=== PATIENT | female | born 1955 | race Caucasian/White ===

== ENCOUNTER 2016-12-04 09:15 | Outpatient (CLI) | payer MEDICAID ==
[~2016-12-04] VITALS: Ht 157.5 cm; Wt 77.3 kg
--- NOTE | ~2016-12-04 | HEMODYNAMI ---
PATIENT:TANNER DIETRICH MEDICAL RECORD: [id number] : 55 LOCATION:D.CAT ADMISSION DATE: 12/04/16 Generatedon:12/04/201612:12 Patient name: TANNER DIETRICH Patient #: [id number] : 1955 Date of study: 12/04/2016 Page: Of Hemodynamic Procedure Report Patient Data Patient Demographics Procedure consent was obtained First Name: TANNER Gender: Female Last Name: KARLO : 1955 Patient #: [id number] Age: 61 year(s) Race: Unknown SSN: [id number] Additional ID: [id number] Contact details [address]: [address] [place] [address] State: [place] City: [place] Zip code: [address] Past Medical History Allergies Allergen Reaction Date Comments Reported Other allergy 12/04/2016 Sulfate, codeine Admission Admission Data Admission Date: 12/04/2016 Admission Time: 9:15 Arrival Date: 12/04/2016 Arrival Time: 0:00 Admit Source: Other Insurance Payor: Private health insurance Height (in.): 64 BSA: 1.85 (m2) Height (cm.): 162.56 BMI: 30.21 (kg/m2) Weight (lbs.): 176 Weight (kg.): 79.83 Lab Results Lab Result Date: 12/04/2016 Lab Result Time: 0:00 Biochemistry Name Units Result Min Max BUN mg/dl 9 --(*---)-- 7 18 Creatinine mg/dl 0.8 --(-*--)-- 0.6 1.3 CBC Name Units Result Min Max Hemoglobin g/dl 11.9 *-(----)-- 13.5 17.5 Procedure Procedure Types Cath Procedure Diagnostic Procedure LHC LHC w/Coronaries Miscellaneous Procedures Moderate Sedation up to 15 minutes Procedure Description Procedure Date Procedure Date: 12/04/2016 Procedure Start Time: 12:00 Procedure End Time: 12:07 Procedure Staff Name Function Yousif Horner MD Performing Physician Lisette Lynn RT Scrub Jaden Ramey RN Nurse Jodi Cunha RT Monitor Procedure Data Cath Procedure Fluoroscopy Diagnostic fluoroscopy Total fluoroscopy Time: 1 time: 1 min min Diagnostic fluoroscopy Total fluoroscopy dose: 216 dose: 216 mGy mGy Contrast Material Contrast Material Type Amount (ml) Isovue 300 50 Entry Location Entry Primary Successful Side Size Upsize Upsize Entry Closure Succes sful Closure Location (Fr) 1 (Fr) 2 (Fr) Remarks Device Remarks Femoral Right 5 Fr Exoseal artery Estimated blood loss: 10 ml Diagnostic catheters Device Type Used For End Catheter Placement Cordis 5Fr Pigtail LV Angiography Catheter (MP) Cordis 5Fr JL 4.0 Procedure Catheter (MP) Cordis 5Fr 3DRC Catheter Procedure (MP) Procedure Complications No complications Procedure Medications Medication Administration Route Dosage Oxygen NC 2 l/min Lidocaine 2% added to field 20 Heparin Flush Bag added to field 2 bags (1000units/500ml NS) 0.9% NaCl I.V. 100 ml/hr Versed I.V. 1 mg Fentanyl I.V. 50 mcg Versed I.V. 1 mg Fentanyl I.V. 50 mcg Versed I.V. 1 mg Fentanyl I.V. 50 mcg Radial Cocktail added to field 1 syringe (Verapomil 2mg/Nitro 400mcg/Heparin 1500units) Mechanical Ventricular Support IABP: Other mechanical ventricular support: Hemodynamics Rest BSA: 1.85 (m2) HGB: 11.9 (g/dl) O2 Consumption: Estimated: 169.16 (ml/min) O2 Co nsumption indexed: Estimated:91.44 (ml/min/m) Heart Rate: 62 (bpm) Snapshots Pre Cath Intra NCS Post Cath Vital Signs Time Heart Resp SPO2 NIBP (mmHg) Rhythm Pain Sedation Rate (ipm) (%) Status Level (bpm) 11:26:41 60 21 100 159/68(123) NSR 0 (11) 10(A) , No pain 11:31:57 57 23 98 132/65(105) NSR 0 (11) 10(A) , No pain 11:36:17 59 19 97 138/63(101) NSR 0 (11) 10(A) , No pain 11:41:45 53 16 98 117/49(82) NSR 0 (11) 10(A) , No pain 11:46:03 51 17 97 111/49(82) NSR 0 (11) 10(A) , No pain 11:50:23 48 16 97 114/45(80) NSR 0 (11) 10(A) , No pain 11:54:35 57 17 97 114/66(78) NSR 0 (11) 10(A) , No pain 11:58:53 48 21 97 105/54(82) NSR 0 (11) 9(A) , No pain 12:03:52 56 18 96 111/52(85) NSR 0 (11) 9(A) , No pain 12:08:08 54 17 94 106/52(89) NSR 0 (11) 9(A) , No pain 12:10:08 53 18 95 100/47(81) NSR 0 (11) 10(A) , No pain Medications Time Medication Route Dose Verified Delivered Reason Notes Effectiveness by by 11:25:42 Oxygen NC 2 l/min Yousif Buffie used for Siri Ramey RN procedure 11:25:50 Lidocaine 2% added 20ml Yousif Yousif for local to vial Siri Horner MD anesthetic field 11:25:57 Heparin Flush added 2 bags Yousif Dodd used for Bag to Siri Horner MD procedure (1000units/500ml field NS) 11:26:05 0.9% NaCl I.V. 100 Yousif Buffie Per ml/hr Siri Ramey RN physician 11:26:12 Radial Cocktail added 1 Yousif Buffie NOT USED (Verapomil to syringe Siri Ramey RN FEMORAL 2mg/Nitro field ACCESS 400mcg/Heparin OBTAINED 1500units) 11:54:22 Versed I.V. 1 mg Yousif Buffie for Siri Ramey RN sedation 11:54:28 Fentanyl I.V. 50 mcg Yousif Tilleyie for Siri Ramey RN sedation 11:57:12 Versed I.V. 1 mg Yousif Buffie for Siri Ramey RN sedation 11:57:16 Fentanyl I.V. 50 mcg Yousif Buffie for Siri Ramey RN sedation 12:02:06 Versed I.V. 1 mg Yousif Buffie for Siri Ramey RN sedation 12:02:11 Fentanyl I.V. 50 mcg Yousif Buffie for Tauth MD Ramey RN sedation Procedure Log Time Note 11:: Admit Source: Other 11:: Arrival Date: 12/04/2016 12:00:00 AM 11:07:32 Patient Height : 162.56 cm 11:07:39 Patient Weight : 79.83 kg 11:10:24 Lab Result : Hemoglobin 11.9 g/dl 11::24 Lab Result : Creatinine 0.8 mg/dl 11::24 Lab Result : BUN 9 mg/dl 11::31 Diagnostic Cath Status : Elective 11::49 IABP : 11::50 Other mechanical ventricular support: 11:: aJden Ramey RN sent for patient. Start room use. 11:: Time tracking: Regular hours 11:: Plan of Care:Hemodynamics will remain stable., Cardiac rhythm will remain stable., Comfort level will be maintained., Respiratory function will remain adequate., Patient/ family verbilizes understanding of procedure., Procedure tolerated without complication., Recovers from procedure without complications.. 11:13:25 Insurance Payor : Private health insurance 11:25:14 Patient received from Med II to [facility] 2 Alert and oriented. Tansferred to table in Supine position. 11:25:15 Warm blankets applied, and ladi hugger turned on for patient comfort. 11:25:16 Correct patient and procedure confirmed by team. 11:25:22 Signed procedure consent form obtained from patient. 11:25:23 ECG and BP/O2 sat monitors applied to patient. 11:25:23 Vital chart was started 11:25:24 Baseline sample Acquired. 11::27 Rhythm: sinus rhythm 11:25:29 Full Disclosure recording started 11:25:42 Oxygen 2 l/min NC was administered by Jaden Ramey RN; used for procedure; 11:25:50 Lidocaine 2% 20ml vial added to field was administered by Yousif Horner MD; for local anesthetic; 11:25:57 Heparin Flush Bag (1000units/500ml NS) 2 bags added to field was administered by Yousif Horner MD; used for procedure; 11:26:03 H&P Date Dictated: 11/28/2016 Within 30 days and on chart., H&P Addendum completed by physician on day of procedure. (MUST COMPLETE FOR ALL OUTPATIENTS). 11:26:05 0.9% NaCl 100 ml/hr I.V. was administered by Jaden Ramey RN; Per physician; 11:26:05 Pre-procedure instructions explained to patient. 11:26:07 Family in waiting room. 11:26:09 Patient NPO since Midnight. 11:26:12 Radial Cocktail (Verapomil 2mg/Nitro 400mcg/Heparin 1500units) 1 syringe added to field was administered by Jaden Ramey RN; ; NOT USED FEMORAL ACCESS OBTAINED 11::38 Patient allergic to Other allergySulfate, codeine 11::41 Is the patient allergic to Iodine/contrast media? No. 11::44 Was the patient premedicated? No 11::45 Is patient on blood thinner?Yes 11::50 ACC The patient was administered the following blood thiners within the last 24 hours: ACCPlavix 11:26:52 Patient diabetic? No. 11:26:56 Snore? Yes 11::59 Sleep apnea? No 11:27:04 Dentures? Yes tight 11:27:11 Patient pain scale 0/10 ?. 11:27:18 IV patent on arrival in left forearm with 0.9% NaCl at [facility]. 11:27:23 Lab results completed and on chart. 11:27:26 Right Radial & Right Groin area was prepped with chlora-prep and draped in sterile fashion 11:27:31 Alarms reviewed by R. N. 11:27:35 Sharps counted by scrub and verified by R.N. 11:27:36 Physician paged 11:27:43 Use device set Radial Dx 11:27:45 Acist Syringe opened to sterile field. 11:27:45 Medline Cath Pack opened to sterile field. 11:27:45 Bag Decanter opened to sterile field. 11:27:46 Terumo 6Fr Slender Glidesheath opened to sterile field. 11:27:46 St Claudio 260cm J .035 wire opened to sterile field. 11:27:47 Acist Hand Control opened to sterile field. 11:27:47 Acist Manifold opened to sterile field. 11:27:48 Tegaderm 4 x 4 opened to sterile field. 11:27:48 MBrace Wrist Support opened to sterile field. 11:37:34 Zero performed for pressure channel P1 11:48:33 Physician arrived 11:53:48 --------ALL STOP TIME OUT------ 11:53:49 Final Timeout: patient, procedure, and site verified with staff and physician. All members of the team are in agreement. 11:53:52 Right Radial & Right Groin site verified by team. 11:53:56 Physical assessment completed. ASA score P 2 - A patient with mild systemic disease as per Yousif Horner MD. 11:53:59 Sedation plan: IV Moderate Sedation Versed, Fentanyl 11:54:22 Versed 1 mg I.V. was administered by Jdaen Ramey RN; for sedation; 11:54:28 Fentanyl 50 mcg I.V. was administered by Jaden Ramey RN; for sedation; 11:54:38 Procedure started. 11:55:53 Local anesthetic to right radial artery with Lidocaine 2% by Yousif Horner MD.ADDITIONAL ACCESS 11:57:12 Versed 1 mg I.V. was administered by Jaden Ramey RN; for sedation; 11:57:16 Fentanyl 50 mcg I.V. was administered by Jaden Ramey RN; for sedation; 12:00:11 Local anesthetic to right femoral artery with Lidocaine 2% by Yousif Horner MD.INITIAL ACCESS ONLY 12:00:20 Use device set Multipack Set 12:00:28 Diagnostic Infinity 5Fr Multipack catheter opened to sterile field. 12:00:34 Terumo 5Fr Galata Sheath opened to sterile field. 12:01:17 A 5 Fr sheath was inserted into the Right Femoral artery 12:02:05 A Cordis 5Fr Pigtail Catheter (MP) was advanced over the wire and used for LV Angiography. 12:02:06 Versed 1 mg I.V. was administered by Jaden Ramey RN; for sedation; 12:02:11 Fentanyl 50 mcg I.V. was administered by Jaden Ramey RN; for sedation; 12:02:11 EF : 50 % 12:02:13 Catheter removed. 12:02:20 A Cordis 5Fr JL 4.0 Catheter (MP) was advanced over the wire and used for Procedure. 12:03:08 LCA angiography performed. 12:03:48 Catheter removed. 12:03:55 A Cordis 5Fr 3DRC Catheter (MP) was advanced over the wire and used for Procedure. 12:04:31 Catheter removed. 12:04:43 Cordis 5Fr Exoseal opened to sterile field. 12:05:08 Sheath removed intact; hemostasis achieved with Exoseal to the Right Femoral artery. 12:05:11 Procedure ended.(Physican Out) 12:05:40 Fluoroscopy time 01.00 minutes. 12:06:12 Fluoroscopy dose: 216 mGy 12:06:12 Flurop Dose total: 216 12:06:24 Contrast amount:Isovue 300 50ml. 12:06:25 Sharps counted by scrub and verified by R.N. 12:06:30 Insertion/operative site no bleeding no hematoma. 12:06:34 Post-op/insertion site Right Femoral artery dressed using a 4 x 4 and Tegaderm. 12:06:40 Post right femoral artery:stable, soft, clean and dry 12:06:42 Post Procedure Pulses reassessed and unchanged 12:06:45 Post-procedure physical assessment completed. ASA score P 2 - A patient with mild systemic disease as per Yousif Horner MD. 12:06:48 Post procedure rhythm: unchanged. 12:06:51 Estimated blood loss: 10 ml 12:06:53 Post procedure instruction explained to patient.Patient verbalizes understanding. 12:06:57 Procedure and supply charges have been captured, reviewed, submitted and are correct. 12:07:17 Procedure Complication : No complications 12:07:19 Vital chart was stopped 12:07:20 See physician's report for complete and final results. 12:07:25 Report given to Pre/Post Procedure Room. 12:07:29 Patient transfered to Pre/Post Procedure Room with Stretcher. 12:07:31 Procedure ended. 12:07:31 Full Disclosure recording stopped 12:07:33 End room use (Document Last) Device Usage Item Name Manufacture Quantity Catalog Hospital Part Current Minimal Lot# / Number Charge Number Stock Stock Serial# Code [facility] 1 98126 [id number] 604762 216556 20 Syringe [employer] Inc Medline Cardinal 1 [id number] 764863 60785 488141 5 Cath Pack Health Bag Microtek 1 2001S 181892 94752 082360 5 [employer] Terumo 6Fr Terumo 1 [id number] 103653 732936 731889 [address] Cl[address] St Claudio 1 932324 830788 405932 782784 30 260cm J .035 wire Acist Hand Acist 1 19843 290987 152955 778541 5 Control Medical Systems Inc Acist Acist 1 64928 705672 149676 416015 5 Manifold Medical Systems Inc Tegaderm 4 3M 1 1626W 476397 106133 777869 5 x 4 MBrace Advanced 1 140-0250-00 397422 83988 737621 5 Wrist Vascular Support Dynamics Diagnostic Cardinal 1 [id number] 371074 45201 526083 30 Infinity Health 5Fr Multipack catheter Terumo 5Fr Terumo 1 [id number] 377832 930015 795130 40 Galata Sheath Cordis 5Fr Cardinal 1 828985 5 Pigtail Health Catheter (MP) Cordis 5Fr Cardinal 1 402769 5 JL 4.0 Health Catheter (MP) Cordis 5Fr Cardinal 1 975473 5 3DRC Health Catheter (MP) Cordis 5Fr Cardinal 1 EX500 436350 304071 924513 10 [facility] HealthWave Signature Audit [place] Stage Time Signature Unsigned Intra-Procedure 12/04/2016 Jodi Cunha 12:12:34 PM RT(R) Signatures Monitor : Jodi Cunha Signature : RT Date : Time : [place] [id number] [facility], [id number]
--- NOTE | ~2016-12-04 | OP ---
PATIENT NAME: TANNER DIETRICH MEDICAL RECORD: [id number] :55 LOCATION:D.CAT ADMISSION DATE: SURGEON: NATASHA CALLE MD DATE OF OPERATION: 12/04/2016 PROCEDURES: 1. Left heart catheterization. 2. Selective coronary angiography. 3. Left ventriculogram. INDICATION: Chest pain compatible with angina. PROCEDURE IN DETAIL: After informed consent was obtained and after detailed explanation of risks, benefits as well as alternative therapies, the patient elected to proceed with angiogram and heart catheterization. The right femoral area is prepped and draped in normal sterile fashion. The right femoral artery was cannulated via modified Seldinger technique with placement of 5-Mexican sheath. All catheters exchanged through this sheath. FINDINGS: The left ventriculogram was performed in standard 30-degree LÓPEZ view, reveals good cardiac wall motion throughout all segments. Overall ejection fraction estimated at 60%. SELECTIVE CORONARY ANGIOGRAPHY: Left main, left anterior descending, left circumflex, and right coronary artery are all smooth-walled vessels with no angiographic evidence of coronary artery disease. OVERALL IMPRESSION: 1. No angiographic evidence of coronary artery disease. 2. Normal left heart pressures. 3. Normal left ventricular systolic function. Chest pain is noncardiac in etiology. No further cardiac workup needs to be ascertained. TRANSINT:[id number] Voice Confirmation ID: [id number] DOCUMENT ID: [id number] NATASHA CALLE MD CC: [id number] DICTATION DATE: 12/04/16 1209 LABORER CHEESEMAKING: 12/04/16 1820 DEP CLI 12/04/16 [facility] [address] [id number]
[~2016-12-04 09:15] MED LIST: BAYER CHEWABLE81 MG PO; CARDIZEM CD180 MG PO; PLAVIX75 MG PO; PROTONIX40 MG PO; ZESTORETIC 20/21 TAB PO
[2016-12-04] MEDS ORDERED: CATAPRES0.1 MG PO (09:43)
[2016-12-04] MEDS ORDERED: CELEXA20 MG PO (09:44)
[2016-12-04 09:45] VITALS: BP 199/67; Ht 157.5 cm; Wt 77.3 kg
[2016-12-04 10:26] LABS: ANION GAP 15.4 mmol/L (8-16); CALCIUM 9.3 mg/dL (8.5-10.1); CARBON DIOXIDE 27.1 mmol/L (21.0-32.0); POTASSIUM - SERUM 3.5 mmol/L (3.5-5.1)
[2016-12-04 10:32] LABS: HEMATOCRIT 35.8 % (36.0-48.0); HEMOGLOBIN 11.9 g/dL (12-16); LYMPHOCYTES 30.6 % (15-50); MCH 30.3 pg (26.0-34.0); MCHC 33.2 g/dL (31.0-37.0); MCV 91.1 fL (80.0-100.0); MEAN PLATELET VOLUME 10.1 fL (7.4-10.4); NEUTROPHILS 57.8 % (40-80); PLATELET COUNT 195 10x3/uL (130-400); RBC 3.93 10x6/uL (4.00-5.40); RDW 12.6 % (11.5-14.5); WBC 4.6 10x3/uL (4.8-10.8)
[2016-12-04] MEDS ORDERED: MATZIM LA180 MG PO (13:10)
[2016-12-04] MEDS ORDERED: CARDURA2 MG PO (13:11)
--- NOTE | 2016-12-04 14:01 | NUR ---
1230-RESTING WITH DAUGHTER AT SIDE, RIGHT GROIN CDI, NO HEMATOMA OR BLEEDING NOTED, RIGHT WRIST WITH BAND AID IN PLACE- NO BLEEDING
--- NOTE | 2016-12-04 14:05 | NUR ---
1300-NO CHANGES IN ASSESSMENT, NO BLEEDING
--- NOTE | 2016-12-04 14:07 | NUR ---
1350-IV D'C WITH CATH TIP INTACT, WRITTEN AND VERBAL D'C INSTRUCTIONS GIVEN TO PT AND DAUGHTER, TO REST ROOM -VOID, D'C HOME WITH DAUGHTER
== END 2016-12-04 14:05 | disposition home or self-care (01) ==
LOC: D.CATH 09:15
PROVIDERS: Internal Medicine Interventional Cardiology
DX: I20.9 Angina pectoris, unspecified (principal); R06.02 Shortness of breath; R94.30 Abnormal result of cardiovascular function study, unspecified; I10 Essential (primary) hypertension

== ENCOUNTER → 2017-01-08 11:56 | Outpatient (CLI) | payer MEDICAID ==
[2016-12-04 09:45] VITALS: BMI 31.1
[~2017-01-08 11:56] MED LIST changes: +CARDURA2 MG PO; +CATAPRES0.1 MG PO; +CELEXA20 MG PO; +MATZIM LA180 MG PO
== END | disposition home or self-care (01) ==
LOC: D.NM 11:56
DX: R10.13 Epigastric pain (principal)

== ENCOUNTER → 2019-04-29 12:58 | Outpatient (CLI) | payer MEDICAID ==
[2016-12-04 09:45] VITALS: BMI 31.1
== END | disposition home or self-care (01) ==
LOC: D.MRI 12:58
PROVIDERS: ATTEND Clinical Nurse Specialist Adult Health
DX: R51 Headache (principal)

== ENCOUNTER 2019-07-02 16:33 | Inpatient (IN) | payer MEDICAID ==
[~2019-07-02] VITALS: Ht 157.5 cm; Wt 87.7 kg
[2019-07-02 17:00] LABS: BASOPHILS 0.2 % (0-2); EOSINOPHILS 0.3 % (0-7); HEMATOCRIT 35.8 % (36.0-48.0); HEMOGLOBIN 12.6 g/dL (12-16); IMMATURE GRANULOCYTES 0.5 % (0-5); LYMPHOCYTES 8.7 % (15-50); MCH 30.4 pg (26.0-34.0); MCHC 35.2 g/dL (31.0-37.0); MCV 86.3 fL (80.0-100.0); MEAN PLATELET VOLUME 9.8 fL (7.4-10.4); MONOCYTES 4.4 % (2-11); NEUTROPHILS 85.9 % (40-80); RBC 4.15 10x6/uL (4.00-5.40); RDW 12.2 % (11.5-14.5); WBC 14.8 10x3/uL (4.8-10.8)
[2019-07-02 17:04] LABS: PLATELET COUNT 257 10x3/uL (130-400)
[2019-07-02 17:32] LABS: ALBUMIN 4.1 g/dL (3.4-5.0); ALKALINE PHOSPHATASE 67 U/L (46-116); ALT (SGPT) 48 U/L (10-68); AMYLASE - SERUM 42 U/L (25-115); BILIRUBIN - TOTAL 0.74 mg/dL (0.2-1.3); CALCIUM 9.1 mg/dL (8.5-10.1); CARBON DIOXIDE 22.2 mmol/L (21.0-32.0); CREATININE - SERUM 0.8 mg/dL (0.6-1.3); GLUCOSE 111 mg/dL (74-106); LIPASE 81 U/L (73-393); POTASSIUM - SERUM 3.1 mmol/L (3.5-5.1); PROTEIN - SERUM 7.4 g/dL (6.4-8.2); UREA NITROGEN 12 mg/dL (7-18); eGFR NON AFRICAN AMERICAN 77 mL/min (90-120)
[2019-07-02 17:33] LABS: CALC OSMOLALITY 242 mosm/kg (275-300); CHLORIDE - SERUM 82 mmol/L (98-107); SODIUM 120 mmol/L (136-145)
[2019-07-02 17:45] LABS: APPEARANCE CLEAR (CLEAR); BILIRUBIN NEGATIVE (NEGATIVE); COLOR YELLOW (YELLOW); GLUCOSE NEGATIVE (NEGATIVE); KETONE MODERATE mg/dL (NEGATIVE); NITRITE NEGATIVE (NEGATIVE); PROTEIN NEGATIVE (NEGATIVE); UROBILINOGEN NORMAL (NORMAL)
--- NOTE | 2019-07-02 19:35 | NUR ---
RECIEVED REPORT FROM OUTGOING NURSE. PT ARRIVED BY GISELE FROM ER. PT AAOX3, APPEARS RESTLESS/ANXIOUS. VSS WITH BP 154/75. CUT NOTED IN TONGUE, PT STATES IT HURT, NO DIFFICULTY SWALLOWING NOTED AT THIS TIME PT WAS ABLE TO SWALLON SOME JELLO. MORPHINE GIVEN ON ARRIVAL TO UNIT FOR PAIN IN LOWER BACK. NS INFUSING @ 100 ON ARRIVAL. IV MAG GIVEN 100MLS/HR. AND LOVENOX 40MG GIVEN PER PROVIDERS ORDER. INITIAL ASSESSMENT COMPLETED. WHEEZING NOTED ON UPPER QUADRANT OF HER LUNGS. PT DENIES ANY FURTHER NEEDS AT THIS TIME. WILL CPOC.
[2019-07-02 19:54] VITALS: BP 154/75; BMI 33.0
--- NOTE | 2019-07-02 22:32 | NUR ---
PT C/O NAUSEA. ZOPHRAN GIVEN. PT OUT FOR CT AT THIS TIME.
--- NOTE | 2019-07-02 23:00 | NUR ---
PT BACK FROM CT.
[2019-07-03] VITALS: BP 138/52
[2019-07-03 04:00] VITALS: BP 123/45
--- NOTE | 2019-07-03 04:45 | NUR ---
PT STATES IV ON LEFT AC HURTS REALLY BAD. RESITED NEW PIV TO R.WRIST 22G X1 STICK. PT TOLERATES WELL. NS INFUSING @ 125MLS/HR.
--- NOTE | 2019-07-03 07:10 | NUR ---
REPORT RECEIVED FROM NEWSAGENT AND PATIENT CARE ASSUMED. PATIENT LAYING IN BED AWAKE, ALERT AND ORIENTED X4. DTR AT BS. PATIENT DENIES ANY NEEDS OR PAIN. PATIENT IS STABLE AND VSS. WILL TREAT MULTIPLE ELECTROLYTE IMBALANCES. WILL CONTINUE WITH PLAN OF CARE. SR UP X 2 BED IN LOW POSITION AND CALL LIGHT IN REACH.
[2019-07-03 07:30] VITALS: BP 133/56
[2019-07-03 07:32] VITALS: Ht 157.5 cm; Wt 87.7 kg
[2019-07-03 07:43] LABS: BASOPHILS 0.1 % (0-2); EOSINOPHILS 0.2 % (0-7); IMMATURE GRANULOCYTES 0.1 % (0-5); LYMPHOCYTES 6.7 % (15-50); MCH 29.8 pg (26.0-34.0); MCHC 34.2 g/dL (31.0-37.0); MCV 87.1 fL (80.0-100.0); MEAN PLATELET VOLUME 10.1 fL (7.4-10.4); MONOCYTES 2.7 % (2-11); NEUTROPHILS 90.2 % (40-80); RDW 12.3 % (11.5-14.5)
[2019-07-03 07:44] LABS: HEMATOCRIT 27.8 % (36.0-48.0); HEMOGLOBIN 9.5 g/dL (12-16); PLATELET COUNT 202 10x3/uL (130-400); RBC 3.19 10x6/uL (4.00-5.40); WBC 8.1 10x3/uL (4.8-10.8)
[2019-07-03 07:57] LABS: INR 1.14 (0.85-1.17); PROTIME 14.1 SECONDS (11.6-15.0)
[2019-07-03 08:06] LABS: CARBON DIOXIDE 23.2 mmol/L (21.0-32.0); CHLORIDE - SERUM 96 mmol/L (98-107); CREATININE - SERUM 0.7 mg/dL (0.6-1.3); GLUCOSE 102 mg/dL (74-106); MAGNESIUM - SERUM 1.4 mg/dL (1.8-2.4); PHOSPHOROUS 2.3 mg/dL (2.5-4.9); PRO BNP 827 pg/mL (0-125); SODIUM 128 mmol/L (136-145); THYROID STIMULATING HORMONE 0.77 uIU/mL (0.36-3.74); eGFR NON AFRICAN AMERICAN 90 mL/min (90-120)
[2019-07-03 08:26] LABS: CALC OSMOLALITY 254 mosm/kg (275-300); UREA NITROGEN 6 mg/dL (7-18)
[2019-07-03 08:27] LABS: CALCIUM 6.6 mg/dL (8.5-10.1); POTASSIUM - SERUM 2.6 mmol/L (3.5-5.1)
[2019-07-03 08:58] LABS: % SATURATION 16 % (15-55); IRON 34 ug/dl (35-150); TOTAL IRON BIND CAPACITY 211 ug/dl (260-445); UNSAT IRON BIND CAPACITY 177 ug/dl (150-375)
--- NOTE | 2019-07-03 09:30 | NUR ---
PATIENT ACCIDENTLY PULLED IV OUT. DRSSING APPLIED. NEW IV TO RT INNER FOREARM 22 G ONE ATTEMPT. PATIENT TOLERATED WELL. WILL CONTINUE WITH PLAN OF CARE. SR UP X 2 BED IN LOW POSITION AND CALL LIGHT IN REACH.
--- NOTE | 2019-07-03 10:30 | NUR ---
IV RESITED WITH ONE ATTEMPT TO RT INNER FOREARM 22G. PATIENT TOLERATGED WELL AND RESTING COMFORTABLY.
--- NOTE | 2019-07-03 16:00 | NUR ---
DR MANNING IN ROOM. SPOKE WITH PATIENT AND DTR. NEW ORDER RECEVIED. PATIENT IS STABLE AND VSS. WILL CONTINUE TO MONITOR.
--- NOTE | 2019-07-03 18:26 | NUR ---
PATIENT LAYING IN BED WITH EYES CLOSED AND BREATHING EVENLY. WILL CONTINUE TO MONITOR. SR UP X 2 BED IN LOW POSITION AND CALL LIGHT IN REACH.
[2019-07-03 20:28] VITALS: BP 140/51
--- NOTE | 2019-07-03 20:50 | MORECARE ---
CASE MANAGEMENT DISCHARGE SUMMARY PATIENT: TANNER DIETRICH UNIT: [id number] ADM DATE: 07/02/19 AGE: 63 : 55 SEX: F ROOM/BED: D.1210 AUTHOR: SHE OSEGUERA PHYSICIAN: REFERRING PHYSICIAN: ANNA LARA MD DATE OF SERVICE: 07/03/19 Discharge Plan Patient Name: TANNER DIETRICH [facility] [facility] 1955 Planned Disposition: Home Anticipated Discharge Date: Discharge Date: Expected LOS: Initial Reviewer: [email or web address] Initial Review Date: 07/02/2019 Generated: 07/03/19 9:49 pm DCPIA - Discharge Planning Initial Assessment Updated by [email or web address]: Winter Gee on 07/03/19 8:48 pm * Is the patient Alert and Oriented? Yes * How many steps to enter\exit or inside your home? * PCP KIMBERLI * [facility] * Preadmission Environment Home Alone * ADLs Independent * Equipment None * List name and contact numbers for known caregivers / representatives who currently or will assist patient after discharge: SHANNAN ORTIZ [facility] - [phone] * Verbal permission to speak to the caregivers and representatives has been obtained from the patient. Yes * Community resources currently utilized None * Additional services required to return to the preadmission environment? No * Can the patient safely return to the preadmission environment? Yes * Has this patient been hospitalized within the prior 30 days at any hospital? No Patient Name: TANNER DIETRICH Page 65769 at 2050 All edits/amendments must be made on the electronic document DICTATION DATE: 07/03/192048 NURSING HOME AIDE: FRANDY 07/03/192048 RPT#: [id number] DC DATE: STATUS: ADM IN [facility] [address] [place] [address] END OF REPORT
--- NOTE | 2019-07-03 20:57 | MORECARE ---
CASE MANAGEMENT DISCHARGE SUMMARY PATIENT: TANNER DIETRICH UNIT: [id number] ADM DATE: 07/02/19 AGE: 63 : 55 SEX: F ROOM/BED: D.1210 AUTHOR: ANA ROSA,DOC PHYSICIAN: REFERRING PHYSICIAN: ANNA LARA MD DATE OF SERVICE: 07/03/19 Discharge Plan Patient Name: TANNER DIETRICH Facility: [facility]:[place] : 1955 Planned Disposition: Home Anticipated Discharge Date: Discharge Date: Expected LOS: Initial Reviewer: [email or web address] Initial Review Date: 07/02/2019 Generated: 07/03/19 9:56 pm Comments DCP- Discharge Planning Updated by [email or web address]: Winter Gee on 07/03/19 7:[address] Patient Name: TANNER DIETRICH Admission Status: ER Accout number: [id number] Admission Date: 07-02-2019 : 1955 Admission Diagnosis: Attending: POORNIMA Current LOS: 1 Anticipated DC Date: Planned Disposition: Home Primary Insurance: [place] [employer]IONS MARC[place] Discharge Planning Comments: CM met with patient to complete initial dc planning assessment. CM educated patient on the CM role and verbal consent given by patient to complete assessment. Patient lives at home alone where she is independent with her care. At discharge patient plans to return home and feels this is a safe discharge. CM discussed availability of home health, rehab services, and medical equipment. Her daughter will be her lifter/driver home. Patient denied known discharge needs at this time. CM will continue to follow and will assist as needed with dc plans/needs. Senior Software Project Manager: Winter Gee DCPIA - Discharge Planning Initial Assessment Updated by [email or web address]: Winter Gee on 07/03/19 8:48 pm * Is the patient Alert and Oriented? Yes * How many steps to enter\exit or inside your home? * PCP KIMBERLI * Pharm[facility] * Preadmission Environment Home Alone * ADLs Independent * Equipment None * List name and contact numbers for known caregivers / representatives who currently or will assist patient after discharge: SHANNAN ORTIZ - DAUGHTER - [phone] * Verbal permission to speak to the caregivers and representatives has been obtained from the patient. Yes * Community resources currently utilized None * Additional services required to return to the preadmission environment? No * Can the patient safely return to the preadmission environment? Yes * Has this patient been hospitalized within the prior 30 days at any hospital? No Last DP export: 07/03/19 7:50 p Patient Name: TANNER DIETRICH Page [id number] at 2057 All edits/amendments must be made on the electronic document DICTATION DATE: 07/03/192055 CRM FUNCTIONAL ANALYST: FRANDY 07/03/192055 RPT#: [id number] DC DATE: STATUS: ADM IN [facility] [address] [place] [address] END OF REPORT
[2019-07-04] VITALS: BP 146/75
--- NOTE | 2019-07-04 03:19 | NUR ---
ASSESSED AT THE BEGINNING OF THE SHIFT. PT WAS REQUESTING TO TAKE A SHOWER AND SHE WAS GIVEN THE TOWELS AND LINENS TO DO THIS. LATER DURING THE NIGHT HER O2 SAT WAS 89% AND WE ENDED UP WITH O2 AT 2 LITERS PER N/C TO GET IT BACK OVER 90$. LAST CHECK WAS 94%
[2019-07-04 04:51] VITALS: BP 159/68
[2019-07-04 06:59] LABS: BASOPHILS 0.3 % (0-2); EOSINOPHILS 0.1 % (0-7); HEMOGLOBIN 10.2 g/dL (12-16); IMMATURE GRANULOCYTES 0.3 % (0-5); LYMPHOCYTES 8.5 % (15-50); MCH 29.6 pg (26.0-34.0); MCHC 32.9 g/dL (31.0-37.0); MEAN PLATELET VOLUME 10.2 fL (7.4-10.4); MONOCYTES 4.8 % (2-11); PLATELET COUNT 167 10x3/uL (130-400); RBC 3.45 10x6/uL (4.00-5.40); WBC 7.6 10x3/uL (4.8-10.8)
[2019-07-04 07:01] LABS: MCV 89.9 fL (80.0-100.0)
--- NOTE | 2019-07-04 07:10 | NUR ---
REPORT RECIEVED FROM WELLHEAD PUMPER AND PATIENT CARE ASSUMED. PATIENT LAYING IN BED ON BACK AWAKE, ALERT AND ORIENTED X 4. PATIENT DENIES ANY NEEDS OR PAIN. PATIENT IS STABLE AND VSS. WILL CONTINUE WITH PLAN OF CARE. SR UP X 2 BED IN LOW POSITION AND CALL LIGHT IN REACH.
[2019-07-04 07:12] LABS: CALC OSMOLALITY 259 mosm/kg (275-300); CALCIUM 7.8 mg/dL (8.5-10.1); CHLORIDE - SERUM 96 mmol/L (98-107); CREATININE - SERUM 0.7 mg/dL (0.6-1.3); GLUCOSE 92 mg/dL (74-106); PHOSPHOROUS 2.5 mg/dL (2.5-4.9); POTASSIUM - SERUM 3.9 mmol/L (3.5-5.1); SODIUM 131 mmol/L (136-145); UREA NITROGEN 5 mg/dL (7-18); eGFR NON AFRICAN AMERICAN 90 mL/min (90-120)
[2019-07-04 07:14] LABS: MAGNESIUM - SERUM 2.1 mg/dL (1.8-2.4)
[2019-07-04 08:11] VITALS: BP 167/75
--- NOTE | 2019-07-04 11:24 | NUR ---
PATIENT UP TO UNIT AMBULATING WOTH PT. PATIENT TOLERATED WELL. DR JADEN ZHOU. PATIENT IS STABLE AND VSS. PATIENT DENIES ANY NEEDS OR PAIN. WILL CONTINUE TO MONITOR. SR UP X 2 BED IN LOW POSITION AND CALL LIGHT IN REACH.
[2019-07-04 12:47] VITALS: BP 153/86
--- NOTE | 2019-07-04 14:50 | NUR ---
PATIENT LAYING IN BED ON BACK VISITING WITH DTR AT . PATIENT IS STABLE AND UNCHANGED. PATIENT DENEIS ANY NEEDS OR PAIN. WILL CONTINUE TO MONTIOR. SR UP X 2 BED IN LOW POSITION AND CALL LIGHT IN REACH.
[2019-07-04 16:03] VITALS: BP 174/70
--- NOTE | 2019-07-04 17:55 | NUR ---
PATIENT SITTING UP IN BS VISITNG WITH DTR. PATIENT DENIES ANY NEEDS OR PAIN.
[2019-07-04] MEDS ORDERED: COZAAR25 MG PO (20:40)
[2019-07-04 21:06] VITALS: BP 162/74
--- NOTE | 2019-07-04 21:44 | NUR ---
1916-REPORT RECIEVED FROM ANA MEEHAN. PT IS ALERT AND ORIENTED X4. PT ON 2L NC AT 96% ROOM AIR-92%. SOB ON EXCERTION. NO S/S OF DISTRESS AT THIS TIME. SOL AT BEDSIDE, BED LOW, CALL LIGHT WITHIN REACH, WILL CONTINUE TO MONITOR. 2147-CHANGED OUT PT'S BED TO PROMOTE BETTER COMFORT. PRN TYLENOL GIVEN. BED LOW, CALL LIGHT WITHIN REACH, WILL CONTINUE TO MONITOR.
--- NOTE | 2019-07-04 23:06 | NUR ---
PT RESTING COMFORTABLY AT THIS TIME WITH EYES CLOSED. RR EVEN AND UNLABORED. DAUGHTER AT BEDSIDE. NO S/S OF DISTRESS AT THIS TIME. BED LOW CALL LIGHT WITHIN REACH. WILL CONTINUE TO MONITOR.
--- NOTE | 2019-07-05 02:57 | NUR ---
I have reviewed this patient and I concur with the Shift Assessment completed by the Licensed Practical Nurse today this shift.
[2019-07-05 05:34] LABS: BASOPHILS 0.3 % (0-2); EOSINOPHILS 1.4 % (0-7); HEMATOCRIT 30.2 % (36.0-48.0); HEMOGLOBIN 9.9 g/dL (12-16); IMMATURE GRANULOCYTES 0.3 % (0-5); MCH 29.8 pg (26.0-34.0); MCHC 32.8 g/dL (31.0-37.0); MEAN PLATELET VOLUME 9.9 fL (7.4-10.4); MONOCYTES 6.8 % (2-11); NEUTROPHILS 75.2 % (40-80); PLATELET COUNT 182 10x3/uL (130-400); RBC 3.32 10x6/uL (4.00-5.40); WBC 5.9 10x3/uL (4.8-10.8)
[2019-07-05 05:45] LABS: CALC OSMOLALITY 264 mosm/kg (275-300); CARBON DIOXIDE 30.8 mmol/L (21.0-32.0); CHLORIDE - SERUM 97 mmol/L (98-107); CREATININE - SERUM 0.7 mg/dL (0.6-1.3); GLUCOSE 93 mg/dL (74-106); PHOSPHOROUS 2.8 mg/dL (2.5-4.9); POTASSIUM - SERUM 3.6 mmol/L (3.5-5.1); SODIUM 134 mmol/L (136-145); UREA NITROGEN 5 mg/dL (7-18); eGFR NON AFRICAN AMERICAN 90 mL/min (90-120)
[2019-07-05 08:31] VITALS: BP 173/67
--- NOTE | 2019-07-05 09:05 | NUR ---
PT 99% PULSE OX ON 2 LITER. AMBULATED IN HALLS ON ROOM AIR AND MAINTAINED PULSE OX OF 97%. LEFT ON RA FOR NOW AND WILL CONTINUE TO MONITOR.
--- NOTE | 2019-07-05 09:58 | NUR ---
IV REMOVED DUE TO COMPLAINT OF SORENESS AND AREA OF SWELLING NOTED AFTER STARTING LEVAQUIN DOSE.
[2019-07-05 11:57] VITALS: BP 151/61
[2019-07-05] MEDS ORDERED: LEVAQUIN750 MG PO (13:16)
[2019-07-05] MEDS ORDERED: NORVASC2.5 MG PO (13:17)
[2019-07-05] MEDS ORDERED: COZAAR100 MG PO (13:18)
--- NOTE | 2019-07-05 15:37 | NUR ---
DISCHARGE INSTRUCTIONS GIVEN TO PT AND DISCUSSED. SCRIPTS ESCRIBED TO [facility]. DAUGHTER DRIVING HER HOME.
--- NOTE | 2019-07-06 08:58 | MORECARE ---
CASE MANAGEMENT DISCHARGE SUMMARY PATIENT: TANNER DIETRICH UNIT: [id number] ADM DATE: 07/02/19 AGE: 63 : 55 SEX: F ROOM/BED: D.1210 AUTHOR: ANA ROSA,DOC PHYSICIAN: REFERRING PHYSICIAN: ANNA LARA MD DATE OF SERVICE: 07/06/19 Discharge Plan Patient Name: TANNER DIETRICH Facility: [facility]:[place] : 1955 Planned Disposition: Home Anticipated Discharge Date: Discharge Date: 07/05/2019 Expected LOS: Initial Reviewer: [email or web address] Initial Review Date: 07/02/2019 Generated: 07/06/19 9:57 am Comments DCP- Discharge Planning Updated by [email or web address]: Winter Gee on 07/03/19 7:[address] Patient Name: TANNER DIETRICH Admission Status: ER Accout number: [id number] Admission Date: 07-02-2019 : 1955 Admission Diagnosis: Attending: POORNIMA Current LOS: 1 Anticipated DC Date: Planned Disposition: Home [place]: [place] [employer] [place] Discharge Planning Comments: CM met with patient to complete initial dc planning assessment. CM educated patient on the CM role and verbal consent given by patient to complete assessment. Patient lives at home alone where she is independent with her care. At discharge patient plans to return home and feels this is a safe discharge. CM discussed availability of home health, rehab services, and medical equipment. 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 Patient denied known discharge needs at this time. CM will continue to follow and will assist as needed with dc plans/needs. Warp Spooler: Winter Gee DCPIA - Discharge Planning Initial Assessment Updated by [email or web address]: Winter Gee on 07/03/19 8:48 pm * Is the patient Alert and Oriented? Yes * How many steps to enter\exit or inside your home? * PCP [facility] * [facility] * Preadmission Environment Home Alone * ADLs Independent * Equipment None * List name and contact numbers for known caregivers / representatives who currently or will assist patient after discharge: SHANNAN ORTIZ - [facility] - [phone] * Verbal permission to speak to the caregivers and representatives has been obtained from the patient. Yes * Community resources currently utilized None * Additional services required to return to the preadmission environment? No * Can the patient safely return to the preadmission environment? Yes * Has this patient been hospitalized within the prior 30 days at any hospital? No Last DP export: 07/03/19 7:57 p Patient Name: TANNER DIETRICH Page [id number] at 0858 All edits/amendments must be made on the electronic document DICTATION DATE: 07/06/19856 COIN BOX INSPECTOR: FRANDY 07/06/19856 RPT#: [id number] DC DATE:07/05/19 STATUS: DIS IN [facility] [address] [place] [address] END OF REPORT
== END 2019-07-05 15:39 | disposition home or self-care (01) | DRG 640 ==
LOC: D.ER 16:33 → D.M3 17:49
PROVIDERS: Emergency Medicine; Internal Medicine Nephrology; ADMIT Family Medicine; ATTEND Family Medicine
DX: E87.1 Hypo-osmolality and hyponatremia (principal); J18.9 Pneumonia, unspecified organism; F17.213 Nicotine dependence, cigarettes, with withdrawal; R35.8 Other polyuria; E83.42 Hypomagnesemia; I10 Essential (primary) hypertension; G40.909 Epilepsy, unspecified, not intractable, without status epilepticus; E87.6 Hypokalemia; D64.9 Anemia, unspecified; Z86.73 Personal history of transient ischemic attack (TIA), and cerebral infarction without residual deficits

== ENCOUNTER 2019-10-28 08:00 | Outpatient (CLI) | payer MEDICAID ==
[~2019-10-28 08:00] MED LIST changes: +COZAAR100 MG PO; +COZAAR25 MG PO; +LEVAQUIN750 MG PO; +NORVASC2.5 MG PO
[2019-10-28 11:43] LABS: HEMATOCRIT 37.9 % (36.0-48.0); HEMOGLOBIN 12.6 g/dL (12-16); MCH 29.6 pg (26.0-34.0); MCHC 33.2 g/dL (31.0-37.0); MCV 89.2 fL (80.0-100.0); MEAN PLATELET VOLUME 9.7 fL (7.4-10.4); RBC 4.25 10x6/uL (4.00-5.40); RDW 13.4 % (11.5-14.5); WBC 6.1 10x3/uL (4.8-10.8)
[2019-10-28 12:32] LABS: ANION GAP 11.8 mmol/L (8-16); CALCIUM 9.2 mg/dL (8.5-10.1); CARBON DIOXIDE 28.2 mmol/L (21.0-32.0); CREATININE - SERUM 0.9 mg/dL (0.6-1.3)
== END 2019-10-28 08:01 | disposition home or self-care (01) ==
LOC: D.OPS 08:00 → D.SDCHOLD 10:00 → EDSTATUS 10-29 10:00 → D.SDCHOLD 10-29 10:00
PROVIDERS: Anesthesiology; ATTEND Neurological Surgery
DX: D32.0 Benign neoplasm of cerebral meninges (principal)

== ENCOUNTER 2020-02-22 10:00 | Day surgery (SDC) | payer MEDICAID ==
[~2020-02-22] VITALS: Ht 157.5 cm; Wt 86.4 kg
[2020-02-22 10:26] LABS: HEMATOCRIT 35.2 % (36.0-48.0); HEMOGLOBIN 11.5 g/dL (12-16); MCH 30.9 pg (26.0-34.0); MCHC 32.7 g/dL (31.0-37.0); MCV 94.6 fL (80.0-100.0); MEAN PLATELET VOLUME 9.3 fL (7.4-10.4); RBC 3.72 10x6/uL (4.00-5.40); RDW 13.4 % (11.5-14.5); WBC 5.8 10x3/uL (4.8-10.8)
[2020-02-22 11:34] VITALS: BP 148/69; Ht 157.5 cm; Wt 86.4 kg
--- NOTE | 2020-02-22 15:32 | NUR ---
1426 IV DC'D. CATHETER TIP INTACT. NO BLEEDING AT SITE. BANDAID APPLIED. PT VOICES UNDERSTANDING OF DISCHARGE INSTRUCTIONS THAT WAS REVIEWED WITH HER AND HER SON.
--- NOTE | 2020-02-22 15:34 | NUR ---
1427 PT'S LAST BP CHECK WAS 187/62. 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 PT INSTRUCTED TO TAKE HER BP MEDICINE UPON RETURNING TO HOME WHICH SHE STATED SHE WOULD DO
--- NOTE | 2020-02-23 07:03 | OP ---
PATIENT NAME: TANNER DIETRICH MEDICAL RECORD: [id number] :55 LOCATION:[facility] ADMISSION DATE: SURGEON: DAVEY CARREON DO DATE OF OPERATION: 02/22/2020 PROCEDURE: Colonoscopy with polypectomy. INDICATIONS FOR PROCEDURE: History of colon polyps. This is a 3-year recall. She also has a history of chronic constipation and generalized abdominal pain as well as diverticular disease. SCOPE: Olympus video pediatric colonoscope. MEDICATIONS: Propofol 430 mg IV per anesthesia. WITHDRAWAL TIME: 10 minutes. ESTIMATED BLOOD LOSS: Minimal. COMPLICATIONS: None. FINDINGS: Informed consent was given. The patient was made comfortable with the above medication. After reaching an adequate level of sedation by slow IV push, the patient was placed on her left side. A digital rectal examination was performed and was normal. The endoscope was then advanced under direct visualization through the rectum to the cecum, confirmed by the presence of the appendiceal orifice and ileocecal valve. The endoscope was slowly withdrawn and mucosa was carefully examined. The prep quality was good. There was evidence of moderate diverticulosis involving the descending and sigmoid colon. There was a single polyp removed on today's examination. It was a benign appearing sessile polyp, which measured approximately 3 mm in diameter in the descending colon. It was removed using cold forceps. Retroflexion was performed in the rectum with visualization of grade I internal hemorrhoids without bleeding. The endoscope was withdrawn from the patient. The patient tolerated the procedure well and there were no complications. IMPRESSION: 1. A single benign-appearing polyp was removed from the descending colon with cold forceps. 2. Moderate diverticulosis of the descending and sigmoid colon. 3. Grade I internal hemorrhoids without bleeding. PLAN AND RECOMMENDATIONS: 1. Discharge home when recovery parameters are met. 2. Follow up biopsy specimen results. 3. High fiber diet. 4. Supplement diet with 1-2 tablespoons of Metamucil daily with a large glass of water. 5. Follow up in GI clinic in 4 weeks. 6. Recall colonoscopy in 5 years. TRANSINT:[id number] Voice Confirmation ID: [id number] DOCUMENT ID: [id number] OPERATIVE REPORT [id number] TANNER DIETRICH DAVEY CARREON DO at 0703 CC: [id number] DICTATION DATE: 02/22/20 1344 PHARMACY SCHEDULER: 02/22/20 2349 [facility] 02/22/20 [facility] [address] [place] [address]
== END 2020-02-22 14:40 | disposition home or self-care (01) ==
LOC: D.OPS 10:00
PROVIDERS: Anesthesiology; ATTEND Internal Medicine Gastroenterology
DX: Z86.010 Personal history of colon polyps (principal); K59.09 Other constipation; R10.84 Generalized abdominal pain; K57.90 Diverticulosis of intestine, part unspecified, without perforation or abscess without bleeding; K64.0 First degree hemorrhoids

== ENCOUNTER 2020-05-30 08:59 | Inpatient (IN) | payer MEDICAID ==
[~2020-05-30] VITALS: Ht 157.5 cm; Wt 79.4 kg
--- NOTE | ~2020-05-30 | OP ---
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 POSTOPERATIVE DIAGNOSIS: Left greater wing of sphenoid bone mwningioma. PROCEDURE: Left frontotemporal craniotomy for resection of greater wing of sphenoid bone meningioma, Baldwin navigation for surgical planning, intraoperative monitoring. SURGEON: Nika Jenkins MD DESCRIPTION AND TECHNIQUE: After induction of general endotracheal anesthesia, the patient was placed in Garcia head pins and positioned supine on the operating table. Registration took place with [employer] navigation and fiducial markers. The skull flap planning proceeded from there. After sterile prep and drape, a left virgen-sutar frontotemporal incision was carried out just across midline and base of the left zygoma. Sedrick clips were applied to the scalp for hemostasis. Following this, several zoie holes were created, one at the base of the left zygoma, another at the keyhole. These were connected with a Midas Jamarcus drill using a side cutting zoie attachment. The skull flap was elevated without difficulty. The dura was incised in a 1 cm perimeter around the tumor using navigation. The tumor was easily identified under microscopic illumination. A dissection took place between the arachnoid overlying the tumor and the brain. The brain was well preserved after the entire perimeter of the tumor was circumscribed. Tumor removed in toto along with the dural attachment. A Duragen patch was used to patch the dura. Meticulous hemostasis was maintained throughout the wound. The skull flap was replaced with titanium plates and screws. The temporalis muscle and galea aponeurotica was reapproximated with interrupted 2-0 Vicryl suture. The skin was closed with wilma. A sterile dressing was applied to the wound. The patient was awakened in good condition and taken to recovery. All counts were reported as correct. Estimated blood loss was minimal. TRANSINT:[id number] Voice Confirmation ID: [id number] DOCUMENT ID: [id number] NIKA JENKINS MD CC: [id number] DICTATION DATE: 06/07/20 1023 LUMBER MARKER: 06/07/20 1339 DIS IN 06/04/20 [place] [id number] [place] [address]
[2020-06-01 18:04] LABS: BASOPHILS 0.6 % (0-2); EOSINOPHILS 0.8 % (0-7); HEMATOCRIT 38.5 % (36.0-48.0); HEMOGLOBIN 12.7 g/dL (12-16); IMMATURE GRANULOCYTES 0.1 % (0-5); LYMPHOCYTES 20.8 % (15-50); MCH 30.1 pg (26.0-34.0); MCV 91.2 fL (80.0-100.0); MEAN PLATELET VOLUME 10.9 fL (7.4-10.4); MONOCYTES 9.1 % (2-11); NEUTROPHILS 68.6 % (40-80); PLATELET COUNT 241 10x3/uL (130-400); RBC 4.22 10x6/uL (4.00-5.40); RDW 12.6 % (11.5-14.5); WBC 7.3 10x3/uL (4.8-10.8)
[2020-06-01 18:14] LABS: ANION GAP 15.7 mmol/L (8-16); CALCIUM 9.6 mg/dL (8.5-10.1); CARBON DIOXIDE 25.1 mmol/L (21.0-32.0); POTASSIUM - SERUM 3.8 mmol/L (3.5-5.1)
[2020-06-02] VITALS (9 sets, daily range): BP systolic 122–187; BP diastolic 52–85; BMI 34.8
--- NOTE | 2020-06-02 09:36 | NUR ---
CVL AND ARTERIAL LINE PLACED IN HOLDING AREA, 0840 DR JENKINS PRESENT FOR POSITION IN [facility] SET UP, ALL AREAS PADDED SECURED WITH NO IMPINGEMENTS, TWORDANIELLE.
--- NOTE | 2020-06-02 15:03 | NUR ---
RECIEVED PT FROM PACU. PT ALERT AND ORIENTED. PLACED ON MONITOR. PT COMPLAINING ABOUT PAIN IN RT EYE 8/10 ON PAIN SCALE. PACU NURSE STATES SHE GAVE HER TYLENOL IN PACU.
--- NOTE | 2020-06-02 15:53 | NUR ---
CONTINUE TO COMPLAIN OF RT EYE PAIN. NORCO 5MG X 2 GIVEN PER ORDERS. WILL CONT TO MONITOR.
--- NOTE | 2020-06-02 16:50 | NUR ---
RECIEVED REPORT FROM STEVO PEREZ, ASSUMING CARE OF PATIENT.
--- NOTE | 2020-06-02 17:20 | NUR ---
CALLED DR JENKINS TO NOTIFY OF PT STATUS, ORDERS FOR LABATALOL 10-20 IVP Q1H PRN SBP > 180 AND TO RESTERT HOME LOSARTAN 100 MG DAILY AND TO GIVE FIRST DOSE NOW.
--- NOTE | 2020-06-02 18:14 | NUR ---
BP STABLE, TEMP 96.4 - WARM BLANKET AND SMALL PILLOW PROVIDED. WILL CONTINUE TO MONITOR.
--- NOTE | 2020-06-02 19:00 | NUR ---
REPORT RECEIVED. PT AAOX4, C/O CHEST PAIN X3, NEW ONSET. BP 50/28 ON ART LINE, DR VILLEDA NOTIFIED. NEW ORDERS RECEIVED.
[2020-06-03] VITALS (15 sets, daily range): BP systolic 102–150; BP diastolic 42–78; Ht 157.5 cm; Wt 79.4 kg
--- NOTE | 2020-06-03 11:23 | NUR ---
0815-L RADIAL ANJU D/C AND L PERIPHERAL SALINE LOCK D/C'D WITH TIPS INTACT AND SKIN INTACT-PT ALERT AND VERBALLY APPROPRIATE 0945-HELD [address]OOZ[address] PL-NIBP 98/41-105/38
--- NOTE | 2020-06-03 22:04 | NUR ---
ALERT,ORIENTED WITH NO DISTRESS NOTED. DRESSING TO LEFT HEAD C/D/I. RIJ NOTED TO RIGHT NECK WITHOUT REDNESS OR EDEMA NOTED. UP WITH ASSIST TO BR AND TO SINK FOR ORAL HYGEINE. BACK TO BED WITHOUT DISTRESS NOTED. CL IN REACH
[2020-06-04 09:21] VITALS: BP 148/66
--- NOTE | 2020-06-04 09:32 | NUR ---
PATIENT IN BED. DENIES PAIN OR NEEDS AT THIS TIME. BED LOW POSITION, CALL LIGHT IN REACH. FREE FROM SIGNS OF DISTRESS. WILL CONTINUE TO MONITOR.
--- NOTE | 2020-06-04 09:59 | NUR ---
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 COMPLAINING ABOUT CVL DRESSING COMING OFF. DRESSING CHANGED.
[2020-06-04] MEDS ORDERED: HYDROCODON-ACE1 EA10 PO (12:42)
[2020-06-04] MEDS ORDERED: MEDROL DOSE PACK4 MG PO (12:42)
--- NOTE | 2020-06-04 13:11 | NUR ---
DR. JENKINS REMOVED RIGHT IG IV. CASTRO CATHETER REMOVED PER DR. JENKINS ORDERS. PATIENT TOLLERATED WELL.
--- NOTE | 2020-06-04 13:57 | NUR ---
DISCHARGE PAPERS COMPLETE. NO FURTHER QUESTIONS. BELONGINGS GATHERED. WAITING ON RIDE TO ARRIVE.
--- NOTE | 2020-06-04 14:19 | NUR ---
PATIENT LEFT UNIT VIA WHEELCHAIR TO HOME.
== END 2020-06-04 14:20 | disposition home or self-care (01) | DRG 27 ==
LOC: D.MS 06-02 05:46 → D.CVICU 06-02 05:46 → D.SDCHOLD 06-02 05:46 → D.CVICU 06-02 12:10 → D.SDCHOLD 06-02 14:15 → D.MS 06-03 13:48
PROVIDERS: Anesthesiology; ADMIT Neurological Surgery; ATTEND Neurological Surgery
PROC: 00B10ZZ Excision of Cerebral Meninges, Open Approach (ICD-10-PCS; principal; 2020-06-02 07:30)
DX: D32.0 Benign neoplasm of cerebral meninges (principal); I10 Essential (primary) hypertension

== ENCOUNTER → 2021-01-04 12:43 | Outpatient (CLI) | payer MEDICARE ==
[2020-06-03 15:19] VITALS: BMI 32.0
[~2021-01-04 12:43] MED LIST changes: +HYDROCODON-ACE1 EA10 PO; +MEDROL DOSE PACK4 MG PO
[2021-01-04 13:23] LABS: BASOPHILS 0.6 % (0-2); EOSINOPHILS 0.7 % (0-7); HEMATOCRIT 39.5 % (36.0-48.0); HEMOGLOBIN 13.1 g/dL (12-16); IMMATURE GRANULOCYTES 0.2 % (0-5); LYMPHOCYTE ABS# 1.68 10x3/uL (1.18-3.74); MCH 29.4 pg (26.0-34.0); MCHC 33.2 g/dL (31.0-37.0); MCV 88.8 fL (80.0-100.0); MEAN PLATELET VOLUME 10.5 fL (7.4-10.4); MONOCYTES 6.9 % (2-11); NEUTROPHIL ABS# 6.02 10x3/uL (1.56-6.13); NEUTROPHILS 71.6 % (40-80); PLATELET COUNT 243 10x3/uL (130-400); RBC 4.45 10x6/uL (4.00-5.40); RDW 12.9 % (11.5-14.5); WBC 8.4 10x3/uL (4.8-10.8)
[2021-01-04 14:24] LABS: ERYTHROCYTE SEDIMENTATION RATE 12 mm/hr (0-30)
== END | disposition home or self-care (01) ==
LOC: D.CT 12:43
PROVIDERS: ATTEND Internal Medicine Gastroenterology
DX: R19.4 Change in bowel habit (principal); R10.31 Right lower quadrant pain; R10.32 Left lower quadrant pain

== ENCOUNTER 2021-02-02 11:30 | Outpatient (CLI) | payer MEDICARE ==
[2020-06-03 15:19] VITALS: BMI 32.0
== END 2021-02-02 23:59 | disposition home or self-care (01) ==
LOC: D.MAMMO 11:30
PROVIDERS: ATTEND Clinical Nurse Specialist Adult Health
DX: Z12.31 Encounter for screening mammogram for malignant neoplasm of breast (principal)